=== PATIENT | female | born 1980 | race Caucasian/White ===

== ENCOUNTER 2018-08-02 09:14 | Inpatient (IN) | payer OTHER ==
[2018-08-02] MEDS ORDERED: Ketorolac INJ* 30 MG/ML 1 ML VIAL IV PUSH ONE (09:45)
[2018-08-02] MEDS ORDERED: Ondansetron INJ* 2 MG/ML VIAL IV ONE ×2 (09:45→14:08)
--- NOTE | 2018-08-02 09:45 | ED ---
Abdominal Pain/Female - HPI Summary HPI Summary: Patient is a 38yo F with a hx of breast CA with last chemo 2+ years ago presenting to the ED with lethargy, sweats, chills, mid abdominal pain and lower abdominal pain x 4 days. Symptoms of pain worsened with eating, however nausea improves with food intake. Denies constipation, diarrhea, fevers. Denies emesis. Denies chance of and denies any vaginal discharge or chance of STD's. She states she feels similar to when she was having chemo. Denies abdominal surgeries. Dr. Montgomery is oncologist and she attends [facility] as PCP. She has been going through PT for diffuse back pain and has been taking muscle relaxers x 2 weeks. She states she has never had a CT scan and is currently CA free. 6 months follow up with Dr. Montgomery. Symptoms not worse with positioning. She states she has been sleeping more frequently. VS on arrival are stable. - History of Current Complaint Chief Complaint: EDAbdPain Stated Complaint: ABD PAIN,NAUSEA Time Seen by Provider: 08/02/18 09:25 Hx Obtained From: Patient, Family/Cafeteria Assistant ?: No Onset/Duration: Gradual Onset Timing: Constant Severity Initially: Moderate Severity Currently: Moderate Pain Intensity: 7 Pain Scale Used: 0-10 Numeric Location: Diffuse Radiates: No Character: Cramping Aggravating Factor(s): Nothing Alleviating Factor(s): Nothing Associated Signs and Symptoms: Positive: Back Pain - Risk Factors Ovarian Torsion Risk Factor: Negative Allergies/Adverse Reactions: Allergies Allergy/AdvReac Type Severity Reaction Status Date / Time Penicillins Allergy Severe Swelling Verified 08/02/18 09:21 Of Face,Lips,& Throat bacitracin [From Polysporin] Allergy Rash Verified 08/02/18 10:16 polymyxin B [From Polysporin] Allergy Rash Verified 08/02/18 10:16 Sulfa (Sulfonamide Allergy Nausea And Verified 08/02/18 10:16 Antibiotics) Vomiting Home Medications: Home Medications B12/Iodin/Mag/Zinc/Janice/Hdch521 [Adrenoid] 1 cap PO DAILY 08/02/18 [History Confirmed 08/02/18] Calcium Carbonate/Vitamin D3 [Calcium 500 + Vit D Caplet] 1 each PO DAILY [History Confirmed 08/02/18] Dietary Supplement [Hyprost] 1 cap PO DAILY 08/02/18 [History Confirmed 08/02/18 ] Tamoxifen TAB* [Nolvadex*] 10 mg PO DAILY 08/02/18 [History Confirmed 08/02/18] PMH/Surg Hx/FS Hx/Imm Hx Previously Healthy: No - hx of breast CA Endocrine/Hematology History: Denies: Hx Diabetes Cardiovascular History: Denies: Hx Hypertension, Hx Pacemaker/ICD Sensory History: Denies: Hx Hearing Aid Psychiatric History: Denies: Hx Panic Disorder - Cancer History Cancer Type, Location and Year: LEFT BREAST CURRENTLY Hx Chemotherapy: No Hx Radiation Therapy: No - Surgical History Surgery Procedure, Year, and Place: BROKEN JAW PLASTIC SURGERY(NO METAL); BUNION SURGERY LEFT FOOT - Immunization History Hx Pertussis Vaccination: No Immunizations Up to Date: Yes Infectious Disease History: No Infectious Disease History: Denies: Traveled Outside the [place] in Last 30 Days - Family History Known Family History: Positive: Cardiac Disease - Social History Occupation: Employed Full-time Lives: With Family Alcohol Use: None Hx Substance Use: No Substance Use Type: Reports: None Hx Tobacco Use: No Smoking Status (MU): Never Smoked Tobacco Review of Systems Positive: Fatigue. Negative: Fever, Chills, Skin Diaphoresis Negative: Photophobia, Blurred Vision, Diplopia, Drainage Negative: Palpitations, Chest Pain Negative: Shortness Of Breath, Cough Positive: Abdominal Pain, Nausea. Negative: Vomiting, Diarrhea Genitourinary: Negative Positive: no symptoms reported, see HPI Positive: Arthralgia - diffuse back pain, Myalgia Negative: Rash, Bruising Negative: Headache, Weakness, Paresthesia Psychological: Normal All Other Systems Reviewed And Are Negative: Yes Physical Exam Triage Information Reviewed: Yes Vital Signs On Initial Exam: Initial Vitals Temp Pulse Resp BP Pulse Ox 98.1 F 85 16 108/56 98 08/02/18 09:18 08/02/18 09:18 08/02/18 09:18 08/02/18 09:18 08/02/18 09:18 Vital Signs Reviewed: Yes Appearance: Positive: Well-Appearing, Well-Nourished Skin: Positive: Warm, Skin Color Reflects Adequate Perfusion Head/Face: Positive: Normal Head/Face Inspection Eyes: Positive: EOMI, DELIO, Conjunctiva Clear Neck: Positive: Supple, No Lymphadenopathy Respiratory/Lung Sounds: Positive: Clear to Auscultation, Breath Sounds Present Cardiovascular: Positive: RRR, Pulses are Symmetrical in both Upper and Lower Extremities Abdomen Description: Positive: Other: - tednerness diffusely throughout Musculoskeletal: Positive: Other - pain to back - diffuse - worse over spine and L hip Neurological: Positive: Alert, Oriented to Person Place, Time, Speech Normal Psychiatric: Positive: Normal, Affect/Mood Appropriate AVPU Assessment: Alert Diagnostics - Vital Signs Vital Signs Temp Pulse Resp BP Pulse Ox 08/02/18 09:18 98.1 F 85 16 108/56 98 - Laboratory Result Diagrams: 08/02/18 09:37 08/02/18 09:37 Lab Statement: Any lab studies that have been ordered have been reviewed, and results considered in the medical decision making process. - CT No standard instances CT Interpretation: Positive (See Comments) CT Interpretation Completed By: Radiologist - 1. There are widespread low- attenuation bone lesions seen throughout the visualized skeleton with compression deformities noted at C4, T11 and L3. With a history of breast cancer metastases are the primary concern. Correlation to scintigraphic imaging , either bone scan or PET CT, will likely be informative. 2. There is hyperattenuating material in the dependent portion of the gallbladder without signs of biliary obstruction or acute inflammatory change. If the patient's exhibiting any signs of cholecystitis, superior characterization can be made with a right upper quadrant ultrasound. 3. Heterogeneous appearing uterus could be seen in the setting of uterine fibroids or adenomyosis. Superior characterization can be made with pelvic ultrasound. Abdominal Pain Fem Course/Dx - Course Course Of Treatment: VS stable on arrival. Patient is noted to have on labs hypercalcemia. Hypercalcemia most likely secondary to a spinal lytic lesions. CT of the spine, abdomen and pelvis obtained. CT spine shows 3 lytic lesions most consistent with a metastasis given patient's history. Patient was given 3 L fluids in the ED as well as zoledronic acid. Zoledronic acid given despite her kidney function due to benefits outweighing the risks. Patient is made aware of these results. Dr. Montgomery to consult and will see patient in the morning. We will continue fluids. - Diagnoses Differential Diagnosis: Positive: Other - metastatic disease, back pain, abdominal pain, lytic lesions of the back Provider Diagnoses: Hypercalcemia - Provider Notifications Discussed Care Of Patient With: Karthikeyan Montgomery Instructed by Provider To: Admit As Inpatient - Critical Care Time Critical Care Time: 30-74 min - CC time 30 minutes Discharge - Sign-Out/Discharge Documenting (check all that apply): Patient Departure - Discharge Plan Condition: Stable Disposition: ADMITTED TO [facility] Referrals: Rosalina Lindsey ASSIGNMENT AGENT [Primary Care Provider] - - Billing Disposition and Condition Condition: STABLE Disposition: Admitted to [facility]
[2018-08-02 09:51] LABS: Hematocrit 36 % (35-47); Hemoglobin 12.4 g/dl (12.0-16.0); Mean Corpuscular HGB Conc 34 g/dl (31-36); Mean Corpuscular Hemoglobin 29 pg (27-31); Mean Corpuscular Volume 85 fL (80-97); Mean Platelet Volume 8.3 um3 (7.4-10.4); Platelet Count 176 10^3/ul (150-450); Red Blood Count 4.27 10^6/ul (4.00-5.40); Red Cell Distribution Width 12 % (10.5-15); White Blood Count 5.3 10^3/ul (3.5-10.8)
[2018-08-02 10:02] LABS: EGFR Non-African American 31.5 (>60)
[2018-08-02] MEDS ORDERED: NS 0.9% 1000 ML* 1,000 ML IV ONE ×2 (10:07→12:52)
[2018-08-02 10:32] LABS: ABS Basophils 0.1 10^3/ul (0-0.2); ABS Eosinophils 0.1 10^3/ul (0-0.6); ABS Lymphocytes 1.3 10^3/ul (1.0-4.8); ABS Monocytes 0.3 10^3/ul (0-0.8); ABS Neutrophils 3.5 10^3/ul (1.5-7.7); ABS Nucleated RBC 0 10^3/ul; Eosinophil % 2.2 % (0-6); Lymphocyte % 24.8 % (25-47); Nucleated Red Blood Cells % 0.1
[2018-08-02] MEDS ORDERED: Iodixanol* (CONTRAST) 320 MG/ML 100 ML SDV IV ONE (11:19)
[2018-08-02 12:10] LABS: Urine Appearance Clear; Urine Blood Negative (Negative); Urine Color Straw; Urine Ketones Negative (Negative); Urine Protein Negative (Negative); Urine Red Blood Cell Absent (Absent); Urine Specific Gravity 1.004 (1.010-1.030); Urine Urobilinogen Negative (Negative); Urine White Blood Cell 1+(6-10/hpf) (Absent)
--- NOTE | 2018-08-02 12:54 | RAD ---
CLINICAL HISTORY: Diffuse abdominal pain in patient with a reported history of left breast cancer COMPARISON: PET/CT June 18, 2016 TECHNIQUE: Contrast enhanced CT examination of the abdomen and pelvis from the lung bases through the initial tuberosities. The patient received 72 mL Visipaque 320 intravenously prior to imaging.The patient received oral contrast as well prior to imaging. Reformats of the cervical, thoracic and lumbar spine were specifically created and independently reviewed. FINDINGS: VISUALIZED LUNG BASES: The visualized lung bases are grossly clear. There is no pleural effusion. ABDOMEN AND PELVIS: The liver, spleen, pancreas and adrenal glands are grossly normal in appearance. There is hyperattenuating material in the dependent portion of the otherwise normal-appearing gallbladder. The kidneys are normal in appearance without focal mass, calcification or signs of hydronephrosis. The oral contrast has progressed as far as the distal small bowel which somewhat limits evaluation of the terminal ileum and colon. The small and large bowel are not distended. The patient's normal appendix is identified in the right lower quadrant measuring 5 mm in diameter (sagittal image 49 of 128).. There is no gross retroperitoneal or mesenteric lymphadenopathy. The uterus is heterogeneous in attenuation and measures 9.4 x 4.5 cm in the sagittal plane (image 64) and 6.2 cm in the transverse plane. The abdominal aorta and iliac arteries are normal in course and diameter. BONES: There is nonspecific straightening of the normal cervical lordosis. There is a compression deformity of the C4 vertebral body. There are low-attenuation lesions throughout the visualized skeleton. For example the C2 spinous process is mostly replaced by low-attenuation soft tissue (series 601.2, image 42 of 90). There are lucent lesions throughout the thoracic spine most severely affecting T2, T5, T7, T10 and T11. There is compression deformity of the T11 vertebral body. There are lucent lesions in the lumbar spine and a compression deformity of the L3 vertebral body. IMPRESSION: 1. There are widespread low-attenuation bone lesions seen throughout the visualized skeleton with compression deformities noted at C4, T11 and L3. With a history of breast cancer metastases are the primary concern. Correlation to scintigraphic imaging, either bone scan or PET CT, will likely be informative. 2. There is hyperattenuating material in the dependent portion of the gallbladder without signs of biliary obstruction or acute inflammatory change. If the patient's exhibiting any signs of cholecystitis, superior characterization can be made with a right upper quadrant ultrasound. 3. Heterogeneous appearing uterus could be seen in the setting of uterine fibroids or adenomyosis. Superior characterization can be made with pelvic ultrasound.
[2018-08-02] MEDS ORDERED: diPHENhydraMINE IV* 50 MG/ML 1 ml VIAL (BENADRYL) IV ONE (13:23)
[2018-08-02] MEDS ORDERED: Zoledronic Acid* 4 MG in NS 0.9% 100 ML* 95 ML IVPB ONE (13:24)
[2018-08-02] MEDS ORDERED: Morphine INJ** 4 MG/ML 1 ML CARPUJECT IV ONE (14:08)
[2018-08-02] MEDS ORDERED: Morphine INJ* 2 MG/ML 1 ML SYRINGE (TWO MG - NEW SYRINGE VERSION) ONE (14:29)
[2018-08-02] MEDS: NS 0.9% 1000 ML* 1,000 ML IV SCH ×2 (15:23→22:05)
[2018-08-02] MEDS: Morphine INJ* 2 MG/ML 1 ML SYRINGE (TWO MG - NEW SYRINGE VERSION) IV PRN (19:17)
--- NOTE | 2018-08-02 20:05 | HP ---
CC: Rosalina Lindsey NP; Karthikeyan Montgomery MD* HISTORY AND PHYSICAL: DATE OF ADMISSION: 08/02/18 PRIMARY CARE PROVIDER: Rosalina Lindsey NP PRIMARY ONCOLOGIST: Karthikeyan Montgomery MD ATTENDING PHYSICIAN: Tiana Oviedo DO * (dictated by Vane Solorzano NP) CHIEF COMPLAINT: Abdominal pain and back pain. HISTORY OF PRESENT ILLNESS: Ms. Garza is a 38-year-old female with past medical history significant for left breast carcinoma status post bilateral mastectomy and reconstruction with left-sided lymph node dissection who states that for a couple of months she has been suffering from back pain and muscle spasms. Approximately 2 weeks ago around 07/18/18, she was seen by her primary care provider and prescribed muscle relaxers. She has also been doing physical therapy for approximately a week. On Friday approximately 4 days ago, she developed nausea. She denies any fevers, chills, chest pain, shortness of breath, diarrhea. She also developed abdominal pain on Friday. She reports feeling hot and cold today. On and Friday of last week, she had diarrhea 2 to 3 times, but now has had no bowel movement since Friday. She reports having a poor appetite and eating a decreased amount of food due to her stomach hurting when she eats. She denies any urinary symptoms such as urgency , frequency, dysuria. She denies any night sweats. She also reports pain in her left hip that radiates from her posterior hip to her left groin. Due to her symptoms, she presented to the hospital for further evaluation of her symptoms. While in the emergency room, the patient received Toradol, Zofran, normal saline. After her CT, she was noted to have a rash in her neck and cheek. She received Benadryl, this rash resolved well in the emergency room. The patient had a CT scan showing lytic lesions in her spine. She had labs showing an elevated calcium. She received Zometa after the ER providers consulted with Dr. Montgomery and the hospitalists were asked to evaluate the patient for admission. PAST MEDICAL HISTORY: Left breast carcinoma. PAST SURGICAL HISTORY: 1. Status post bilateral mastectomy with reconstruction and left axillary lymph node dissection. 2. Status post bunion surgery. 3. Status post jaw surgery. MEDICATIONS: Home medications include: 1. Tamoxifen 10 mg oral daily. 2. HyProst dietary supplement 1 capsule oral daily. 3. Calcium 500 plus vitamin D 1 tablet oral daily. 4. Adrenoid 1 cap oral daily. ALLERGIES: PENICILLIN, BACITRACIN, SULFA. FAMILY HISTORY: The patient's mother had a history of MS. The patient's father passed at age 55 from an IN. Her paternal grandfather had a history of heart disease. She denies family history of diabetes. Her maternal great grandfather with a history of colon cancer in his 70s. SOCIAL HISTORY: She denies tobacco or recreational drug use. She occasionally drinks alcohol. Her , Mathew Garza, will be her surrogate decision maker in the event she is unable to make decisions for herself. REVIEW OF SYSTEMS: I performed an 11-point review of systems. All the pertinent positives and negatives are mentioned in the history of present illness. The remaining review of systems is negative. PHYSICAL EXAMINATION GENERAL APPEARANCE: The patient is alert, pleasant, appears to be in no acute distress. VITAL SIGNS: Temperature 98.1, heart rate 54, respiratory rate 16, O2 sat 98% on room air, blood pressure 155/93. HEENT: Normocephalic, atraumatic. Pupils are equal and reactive to light. Extraocular movements are intact. RESPIRATORY: There is no accessory muscle use. Lungs are clear to auscultation bilaterally. CARDIOVASCULAR: Regular rate and rhythm. S1, S2 present. There are no murmurs , rubs, or gallops heard. ABDOMEN: Soft, nontender, nondistended. There are bowel sounds present x4. EXTREMITIES: There is no lower extremity edema. DP and PT pulses are 2+ and symmetric. MUSCULOSKELETAL: There is no clubbing or cyanosis noted. The patient exhibits good strength in all extremities. There is no tenderness to palpation to the neck, back or hips. NEUROLOGICAL: The patient is alert and oriented x4. Cranial nerves II through XII are grossly intact. PSYCHOLOGICAL: The patient is calm and cooperative. SKIN: There are no rashes or abnormalities seen. DIAGNOSTIC STUDIES/LAB DATA: Sodium 139, potassium 3.9, chloride 95, CO2 of 31 , BUN 26, creatinine 1.79, glucose 97. White blood cell count 5.3, hemoglobin 12.4, hematocrit 36, platelet count 176,000. Calcium 14.0. AST 43, ALT 11. Urinalysis significant for specific gravity of 1.004, trace leukocyte esterase, 1+ wbc's, squamous epithelial cells present. Abdomen, pelvis, cervical, lumbar and thoracic spine CT from today. Radiologist 's impression: There are widespread low attenuation bone lesions seen throughout the visualized skeleton with compression deformities noted at C4, T11 , and L3 with a history of breast cancer metastasis the primary concern. Correlation to sonographic imaging, either bone scan or PET/CT will likely be informative. There is hyperattenuating material in the dependent portion of the gallbladder without signs of biliary obstruction or acute inflammatory change. If the patient is exhibiting any signs of cholecystitis, superior characterization can be made with a right upper quadrant ultrasound. Heterogeneous appearing uterus can be seen in the setting of uterine fibroids or adenomyosis. Superior characterization can be made with pelvic ultrasound. IMPRESSION: Ms. Garza is a 38-year-old female with past medical history significant for breast cancer status post mastectomy who presented to the emergency room with complaints of abdominal pain. She will be admitted as an observation for bone lesions, back pain, and elevated calcium. ASSESSMENT/PLAN: 1. Lytic lesions. I suspect that this likely represents metastatic breast cancer in the setting of a patient with a history of breast cancer. She received Zomig in the ER as her calcium is elevated. We will recheck her calcium levels in the morning. We will provide her with supportive care, IV fluids, pain medications, nausea medications. She will be seen by Oncology who will take over her care in the morning. 2. Acute on chronic kidney injury. I suspect the patient's creatinine is elevated due to her elevated calcium in addition to not taking in good PO intake. We will give her IV fluids overnight, and recheck her labs in the morning. 3. Elevated calcium. I suspect this is secondary to the patient's bone lesions. She was also on a calcium supplement. We will discontinue her calcium supplement. She received a dose of Zometa in the emergency room. 4. Breast cancer. The patient should continue to follow with Oncology. We will continue her on her home tamoxifen. 5. Fluids, electrolytes and nutrition. Regular diet. 6. Code status. Full code. 7. DVT prophylaxis. She is at moderate risk. We will add subcu heparin. 8. Disposition. Observation. TIME SPENT: Time for this admission was approximately 60 minutes, greater than half of that was spent with the patient and her mother discussing medications, past medical history, the events leading up to her arrival today and performing a physical examination. The case has been reviewed with the attending, Dr. Oviedo, who agrees with the plan of care. Reviewed by JAVON SALEH 08/06/18 1153 [id number]/[facility] #: [id number] MTDD
[2018-08-02] MEDS: Ondansetron INJ* 2 MG/ML VIAL IV PRN (20:25)
[2018-08-02] MEDS: Heparin VIAL(*) 5000 UNITS/ML VIAL (FIVE THOUSAND) SUBCUT SCH (21:58)
[2018-08-02] MEDS: Tamoxifen TAB* 10 MG PO SCH (21:58)
[2018-08-03] MEDS: Acetaminophen TAB* 325 MG PO PRN ×2 (00:24→06:04)
[2018-08-03] MEDS: Morphine INJ* 2 MG/ML 1 ML SYRINGE (TWO MG - NEW SYRINGE VERSION) IV PRN (04:04)
[2018-08-03] MEDS: Ondansetron INJ* 2 MG/ML VIAL IV PRN ×2 (04:04→09:39)
[2018-08-03] MEDS: Heparin VIAL(*) 5000 UNITS/ML VIAL (FIVE THOUSAND) SUBCUT SCH ×3 (06:03→22:23)
[2018-08-03 06:22] LABS: EGFR Non-African American 35.1 (>60)
[2018-08-03] MEDS: NS 0.9% 1000 ML* 1,000 ML IV SCH ×2 (07:57→17:11)
[2018-08-03] MEDS: oxyCODONE TAB* 5 MG TAB PO PRN ×5 (08:31→22:19)
[2018-08-03] MEDS ORDERED: Dexamethasone IV* 8 MG in NS 0.9% 50 ML* 50 ML IVPB SCH (11:00)
[2018-08-03] MEDS: Dexamethasone IV* 4 MG/ML 1 ML (4 MG) IV SLOW PU SCH ×2 (11:24→22:26)
[2018-08-03] MEDS: PROCHLORPERAZINE INJ 5 MG/ML 2 ML VIAL IV PRN ×2 (11:24→17:16)
[2018-08-03] MEDS: Tamoxifen TAB* 10 MG PO SCH (22:22)
[2018-08-04] MEDS: oxyCODONE TAB* 5 MG TAB PO PRN ×3 (03:33→11:57)
[2018-08-04] MEDS: Heparin VIAL(*) 5000 UNITS/ML VIAL (FIVE THOUSAND) SUBCUT SCH (05:50)
[2018-08-04] MEDS: NS 0.9% 1000 ML* 1,000 ML IV SCH (05:55)
--- NOTE | 2018-08-04 06:42 | CONS ---
MEDICAL ONCOLOGY CONSULTATION NOTE: DATE OF CONSULT: 08/03/18 REASON FOR CONSULTATION: New onset of metastatic carcinoma in a patient with known underlying breast cancer. HISTORY OF PRESENT ILLNESS: Malka Garza is a 38-year-old female well known to our office. She originally had noticed a lump in the breast in May 2015. A mammogram in May 2015 had shown a complex cyst, corresponding to palpable abnormality. She was followed on several office visits that summer in an attempt to aspirate the cyst. Thick fluid and blood were obtained and the cytology was positive for adenocarcinoma. Fine-needle aspiration in October 2015 revealed a tumor that was ER, OH positive and HER2 3+ positive as well. Breast MRI revealed a mass in the left upper outer quadrant with also evidence for multifocal disease with total tumor spanning an area of 46 mm. No axillary adenopathy was noted. CT scan of the chest, abdomen, and pelvis revealed an area of sclerosis in the L5 vertebrae. Bone scan was negative. MRI scan of the vertebrae did not reveal any evidence for metastatic disease. She was still premenopausal, had taken oral contraceptives for 2 years and then used a contraceptive patch and had been off hormonal therapy since 2003. She was seen in second opinion at [facility]. A core needle aspiration was performed and this also was positive for HER2/jena. She was seen in consultation by Dr. Landaverde of Surgery, Dr. Lola Dumas of Medical Oncology, and Dr. Ontiveros of Plastic Surgery. She received chemotherapy 6 cycles of TCHP neoadjuvant chemotherapy, initiated in March 2016. At the time of surgery, there was evidence for 3 lymph nodes being negative, although one of these did have evidence for tumor regression. Rest revealed only residual DCIS. Tamoxifen was initiated in March 2016 and she has been followed since. Most recent office visit was on 04/14/18. She had remained on tamoxifen other than stopping for a week due to insurance issue and resuming tamoxifen caused significant hot flashes and also change in her menstrual period, but then these resolved over a period of time. She had no significant aches or pain other than in chest where she has "a pulled muscle" which seems to be improving with physical therapy. The pain is at times was worse with sneezing, twisting, and turning. No hot flashes or night sweats back on the tamoxifen. At this time, the patient has noted back pain along with the muscle spasms occurring over a couple of months period of time. This has been in the neck as well as in the mid spine, lower spine and radiating down to the left buttock into the left thigh. She was seen by primary care on 07/18/18. At that time, was already taking Advil 400 mg b.i.d., but a muscle relaxant was added. She was in the physical therapy for approximately a week. Four days prior to this admission, she developed significant nausea without any vomiting. However, she had 1 vomiting episode on the morning of her consultation. She developed diarrhea several times per day, up to 5 times per day. Appetite was poor. She denies any fevers, sweats, chills, cough, or other signs of infections. Denies any hot flashes or night sweats. She does complain to me of having developed headaches over this period of time, which can be severe. She rates both the back pain, neck pain, and headache all up to 8 to 10/10. In the emergency room, the patient received Toradol and Zofran along with normal saline. A CT scan was performed. There was a subsequent rash noted. It resolved with Benadryl. A CT scan of the abdomen and pelvis revealed multiple lytic lesions in the spine, which were confirmed on the CT scan of the cervical, thoracic, and lumbar spine. There is a lesion at C2 in the spinous process, most of this replaced by no attenuation soft tissue. There is a marked compression deformity of the C4 vertebral body. In addition, these lesions are seen on multiple locations in the thoracic spine, worse at T2, T5, T7, T10, and T11 with compression deformities also noted at T11. There are multiple loosened abnormalities in the lumbar spine and a compression abnormality of L3. There is no evidence for any cord compression. There is no evidence for any abnormal lesions in the liver or lungs. Known adenopathy. There are gallstones present. PAST MEDICAL HISTORY: Otherwise significant for jaw surgery and bunion surgery. No hypertension, diabetes, GA, or CVA. MEDICATIONS: At this time include, 1. Ibuprofen 400 mg b.i.d. 2. Tamoxifen 20 mg daily. 3. Calcium with vitamin D. 4. P.r.n. muscle relaxant, name unclear. ALLERGIES: To PENICILLINS, BACITRACIN, and SULFA. FAMILY HISTORY: Father at age 55 of heart disease. Mother is currently 65 with multiple sclerosis. Brother in good health. Children, ages 7 and 9. Only other family history of malignancy is that of a maternal great grandfather with colon cancer at age 70. SOCIAL HISTORY: The patient works in [employer] in [place] at [place]. She lives with and 2 children. Occasional alcohol. No smoking. PHYSICAL EXAM: A 38-year-old female, in no acute distress. Vital Signs: Blood pressure 129/65, pulse 82, temperature 99.5. She does report that she had a higher temperature earlier over 100, although this is not documented in her vital signs flow sheet. HEENT: PERRL. EOMI. No erythema or exudates. No scleral icterus. No palpable cervical, supraclavicular, or axillary adenopathy. Status post bilateral mastectomies with reconstruction with well- healed scars. Heart: Regular rate and rhythm without murmurs, rubs, or gallops. Lungs: Clear. Abdomen: Normoactive bowel sounds. No masses or organomegaly. There is mild tenderness diffusely, but mostly in the lower quadrants. Extremities: No clubbing, cyanosis, or edema. Neurological Exam: Motor is 5/5 throughout. Cranial nerves II through XII were intact. The patient is alert and oriented x3. LABORATORY STUDIES: Significant for moderately elevated calcium at 14. Creatinine is elevated at 1.79, BUN of 26. Other electrolytes are normal. CBC with a white count of 5,300, H and H of 36/12.4, platelet count of 176,000. With hydration and with a single dose of Zometa 4 mg, creatinine has mildly diminished and the calcium level is down to 11.4. Albumin was normal on both readings. IMPRESSION: A 38-year-old female with known HER2 positive breast cancer. It was lymph node negative after neoadjuvant chemotherapy, but there was evidence for cancer in one of the lymph nodes. Although the largest tumor was under 2 cm , there were significant tumor in multiple sites spanning over 4 cm. She is at high risk for recurrence given these features and it certainly appears as though that is the case with multiple lytic bone lesions seen throughout the cervical, thoracic, and lumbar spines with no evidence for compression fractures. Her pain is dramatically worse recently. Some of this may be due to recent compression fractures to the extent of the lytic bony disease. In addition, she has marked hypercalcemia, which has improved with hydration and Zometa. She will need further workup to better elucidate how much disease is present and whether there is any to bone involving the viscera . An MRI scan of the brain will be obtained, especially given her headaches. This will be with IV contrast to both look for parenchymal lesions in her brain and also to assess for carcinomatous meningitis, especially given the number of lesions along with spinal canal. The patient will also require a PET scan to better determine whether or not if there is any visceral disease. CA 27-29 tumor markers have also been ordered. At the time of the visit with the patient in the hospital, her mother and were both present. The patient herself was feeling very dizzy and lightheaded, episodes of nausea, complaining of severe headaches. Pain and nausea not relieved with the current regimen of narcotics and Zofran. When the patient was seen later in the day following use of Compazine and Decadron, her symptoms seemed under much better control. It was discussed with the patient and her and her mother that systemic therapy should commence in the near future. Her options would include anti- HER2 agents such as Kadcyla. Also, options for change of hormonal therapy from tamoxifen to either aromatase inhibitors or Faslodex. One possibility would be to use Kadcyla in conjunction with a changed hormonal therapy. Alternatively, if there is visceral disease, chemotherapy might be appropriate. In addition, if there were to be [employer] involvement, either the parenchymal lesions or carcinomatous meningitis, focal treatments for her [employer] would be in order. [id number]/[facility] #: [id number] [facility]
[2018-08-04 07:05] LABS: ABS Basophils 0 10^3/ul (0-0.2); ABS Eosinophils 0 10^3/ul (0-0.6); ABS Lymphocytes 1.1 10^3/ul (1.0-4.8); ABS Monocytes 0.1 10^3/ul (0-0.8); ABS Neutrophils 5.7 10^3/ul (1.5-7.7); ABS Nucleated RBC 0 10^3/ul; Eosinophil % 0 % (0-6); Hematocrit 32 % (35-47); Hemoglobin 10.8 g/dl (12.0-16.0); Lymphocyte % 16.5 % (25-47); Mean Corpuscular HGB Conc 34 g/dl (31-36); Mean Corpuscular Hemoglobin 29 pg (27-31); Mean Corpuscular Volume 85 fL (80-97); Nucleated Red Blood Cells % 0; Platelet Count 171 10^3/ul (150-450); Red Cell Distribution Width 12 % (10.5-15)
[2018-08-04 07:23] LABS: EGFR Non-African American 42.2 (>60)
[2018-08-04] MEDS: Dexamethasone IV* 4 MG/ML 1 ML (4 MG) IV SLOW PU SCH (08:02)
[2018-08-04] MEDS ORDERED: Gadoteridol* (CONTRAST) 279.3 MG/ML 10 ML IV ONE (08:54)
--- NOTE | 2018-08-04 09:47 | RAD ---
HISTORY: headaches with metastatic breast cancer COMPARISONS: None TECHNIQUE: The following sequences were obtained of the head: Sagittal T1-weighted images, axial T2-weighted images, axial FLAIR images, axial susceptibility weighted images, axial T1-weighted images. Additionally, axial diffusion-weighted images were obtained with calculated apparent diffusion coefficients. Additionally, sagittal, coronal, and axial T1-weighted images were obtained after contrast enhancement with a gadolinium-based intravenous contrast agent. FINDINGS: HEMORRHAGE/INFARCT: There is no hemorrhage or acute infarct. MASSES/SHIFT: There is no mass or shift. EXTRA-AXIAL SPACES/MENINGES: There are no extra-axial fluid collections. SULCI AND VENTRICLES: The sulci and ventricles are normal in size and position for the patient's stated age. CEREBRUM: There are no focal parenchymal abnormalities. BRAINSTEM: There are no focal parenchymal abnormalities. CEREBELLUM: There are no focal parenchymal abnormalities. The cerebellar tonsils are normal in size and position. SELLA: The sella is normal. PINEAL: The pineal region is clear. CP ANGLE/TEMPORAL BONES: The labyrinthine structures are grossly normal. VESSELS: Normal flow-voids are noted within the visualized vertebral vasculature. DIFFUSION ABNORMALITIES: There are no diffusion abnormalities. PARANASAL SINUSES/MASTOIDS: The paranasal sinuses are clear. ORBITS: The orbits are unremarkable. BONES AND SOFT TISSUE: No bone or soft tissue abnormalities are noted. OTHER: There is no abnormal enhancement. IMPRESSION: NO ABNORMAL ENHANCEMENT, VASOGENIC EDEMA, OR SPACE-OCCUPYING LESION TO SUGGEST METASTATIC DISEASE TO THE BRAIN.
[2018-08-04 10:27] VITALS: BP 161/91
== END 2018-08-04 13:50 | disposition home or self-care (01) | DRG 543 ==
LOC: ED 09:14 → MED 14:55 → OBSVTOIN 08-03 13:15
PROVIDERS: ADMIT Internal Medicine Hematology & Oncology; ATTEND Internal Medicine Hematology & Oncology
DX: C79.51 Secondary malignant neoplasm of bone (principal); C77.9 Secondary and unspecified malignant neoplasm of lymph node, unspecified; N17.9 Acute kidney failure, unspecified; E83.52 Hypercalcemia; C50.412 Malignant neoplasm of upper-outer quadrant of left female breast; M89.9 Disorder of bone, unspecified; Z17.0 Estrogen receptor positive status [ER+]; Z79.899 Other long term (current) drug therapy; Z88.1 Allergy status to other antibiotic agents; Z88.0 Allergy status to penicillin; Z88.2 Allergy status to sulfonamides; Z82.49 Family history of ischemic heart disease and other diseases of the circulatory system; Z80.0 Family history of malignant neoplasm of digestive organs; Z84.89 Family history of other specified conditions
CPT/HCPCS: 36415; 70553; 72125; 72128; 72131; 74177; 80048; 80053; 81003; 81015; 83605; 83690; 84702; 85025; 86140; 86300; 87086; 99284; A9270-GY; A9579; G0378; J0780; J1100; J1200; J1644; J1885; J2270; J2405; J3489; Q9967

== ENCOUNTER 2022-03-12 20:15 | Inpatient (IN) ==
[2022-03-12] MEDS ORDERED: NS 0.9% 1000 ml BAG 1,000 ML IV ONE (21:10)
[2022-03-12] MEDS ORDERED: Iodixanol (CONTRAST) 320 MG/ML 100 ML SDV IV ONE (21:19)
[2022-03-12 22:15] LABS: ABS Basophils 0.1 10^3/ul (0-0.2); ABS Eosinophils 0.1 10^3/ul (0-0.6); ABS Lymphocytes 0.8 10^3/ul (1.0-4.8); ABS Monocytes 0.3 10^3/ul (0-0.8); ABS Neutrophils 1.7 10^3/ul (1.5-7.7); Eosinophil % 2.8 %; Hematocrit 28 % (35-47); Hemoglobin 9.8 g/dL (12.0-16.0); Lymphocyte % 28.5 %; Mean Corpuscular HGB Conc 35 g/dL (31-36); Mean Corpuscular Hemoglobin 32 pg (27-31); Mean Corpuscular Volume 93 fL (80-97); Mean Platelet Volume 7.8 fL (7.4-10.4); Nucleated Red Blood Cells % 0.1; Platelet Count 159 10^3/uL (150-450); Red Blood Count 3.02 10^6 /uL (3.70-4.87); Red Cell Distribution Width 19 % (10-15)
[2022-03-12 22:26] LABS: Activated Partial Thrombo Time 33.6 seconds (26.0-38.0); INR 1.17 (0.86-1.15)
[2022-03-12 22:32] LABS: HDL Cholesterol 44.7 mg/dL
[2022-03-12 22:33] LABS: Albumin 3.6 g/dL (3.2-5.2); Albumin/Globulin Ratio 2.4 (1-3); Globulin 1.5 g/dL (2-4); Magnesium 1.7 mg/dL (1.9-2.7); Potassium 3.5 mmol/L (3.5-5.0); Total Bilirubin 0.4 mg/dL (0.2-1.0); Total Protein 5.1 g/dL (6.4-8.9); eGFR CKD-EPI 77.2 (>60)
[2022-03-12] MEDS ORDERED: Dexamethasone IV 4 MG/ML VIAL 1 ml VIAL IV SLOW PU ONE (22:56)
[2022-03-12] MEDS ORDERED: Magnesium Sulfate 2 gm BAG 2 GM/50 ML BAG IVPB ONE (23:55)
[2022-03-13 00:04] LABS: High Sensitivity Troponin 1 Hr 10 pg/mL (<15)
[2022-03-13] MEDS ORDERED: Ondansetron ODT 4 mg TAB 4 MG TAB PO PRN (00:27)
[2022-03-13 02:39] LABS: Urine Appearance Clear; Urine Bilirubin Negative (Negative); Urine Blood Negative (Negative); Urine Color Colorless; Urine Glucose Negative (Negative); Urine Ketones Negative (Negative); Urine Nitrite Negative (Negative); Urine Protein Negative (Negative); Urine Specific Gravity 1.004 (1.002-1.030); Urine Urobilinogen Negative (Negative)
[2022-03-13 06:05] LABS: ABS Lymphocytes 0.2 10^3/ul (1.0-4.8); ABS Neutrophils 3.9 10^3/ul (1.5-7.7); Hematocrit 36 % (35-47); Hemoglobin 12.4 g/dL (12.0-16.0); Lymphocyte % 4.6 %; Mean Corpuscular HGB Conc 35 g/dL (31-36); Mean Corpuscular Hemoglobin 32 pg (27-31); Mean Corpuscular Volume 94 fL (80-97); Mean Platelet Volume 8.4 fL (7.4-10.4); Platelet Count 192 10^3/uL (150-450); Red Blood Count 3.85 10^6 /uL (3.70-4.87); Red Cell Distribution Width 19 % (10-15); White Blood Count 4.2 10^3/uL (3.5-10.8)
[2022-03-13 06:23] LABS: Albumin 4.4 g/dL (3.2-5.2); Albumin/Globulin Ratio 2.2 (1-3); Calcium 9.1 mg/dL (8.6-10.3); Magnesium 2.1 mg/dL (1.9-2.7); Potassium 4.2 mmol/L (3.5-5.0); Total Bilirubin 0.5 mg/dL (0.2-1.0); Total Protein 6.4 g/dL (6.4-8.9); eGFR CKD-EPI 87.1 (>60)
[2022-03-13] MEDS ORDERED: [UNRECOGNIZED DRUG - OTHER] PO SCH (09:00)
[2022-03-13] MEDS ORDERED: Gadoteridol (CONTRAST) 279.3 MG/ML 10 ML IV ONE (13:46)
[2022-03-13 15:52] VITALS: BP 112/67
== END 2022-03-13 19:36 | disposition home or self-care (01) | DRG 81 ==
LOC: ED 20:15 → EDHOLD 23:52 → SUATTDRO 23:52 → EDHOLD 03-13 00:58 → MEDTELE 03-13 01:43
PROVIDERS: ADMIT Hospitalist; ATTEND Internal Medicine

== ENCOUNTER 2022-04-09 12:14 | Inpatient (IN) ==
[2022-04-09] MEDS ORDERED: diazePAM INJ CARPUJECT 5 MG/ML SYRINGE IV ONE ×3 (12:53→14:37)
[2022-04-09] MEDS ORDERED: cefTRIAXone 1 gm/50 mL D5W 1 GM/50 ML BAG IV ONE (14:49)
[2022-04-09] MEDS ORDERED: NS 0.9% IVPB ONE (14:57)
[2022-04-09] MEDS ORDERED: DEXAMETHASONE IVPB ONE (14:57)
[2022-04-09 15:25] LABS: ABS Lymphocytes 0.1 10^3/ul (1.0-4.8); ABS Neutrophils 2.2 10^3/ul (1.5-7.7); Eosinophil % 0.1 %; Hematocrit 30 % (35-47); Hemoglobin 10.1 g/dL (12.0-16.0); Lymphocyte % 2.3 %; Mean Corpuscular HGB Conc 34 g/dL (31-36); Mean Corpuscular Hemoglobin 32 pg (27-31); Mean Corpuscular Volume 94 fL (80-97); Mean Platelet Volume 6.8 fL (7.4-10.4); Nucleated Red Blood Cells % 0.2; Platelet Count 90 10^3/uL (150-450); Red Blood Count 3.14 10^6 /uL (3.70-4.87); Red Cell Distribution Width 21 % (10-15); White Blood Count 2.3 10^3/uL (3.5-10.8)
[2022-04-09 15:58] LABS: Albumin 3.3 g/dL (3.2-5.2); Albumin/Globulin Ratio 2.5 (1-3); Calcium 7.8 mg/dL (8.6-10.3); Globulin 1.3 g/dL (2-4); Potassium 3.9 mmol/L (3.5-5.0); Total Bilirubin 0.9 mg/dL (0.2-1.0); Total Protein 4.6 g/dL (6.4-8.9); eGFR CKD-EPI 120.5 (>60)
[2022-04-09] MEDS ORDERED: Iohexol 300 (CONTRAST) 10 ML SDV IV ONE (16:02)
[2022-04-10] MEDS ORDERED: diazePAM INJ CARPUJECT 5 MG/ML SYRINGE IV ONE ×2 (05:28→06:03)
[2022-04-10] MEDS ORDERED: diazePAM INJ CARPUJECT 5 MG/ML SYRINGE IM ONE ×2 (06:01→06:04)
[2022-04-10] MEDS ORDERED: CAPECITABINE 500 MG PO PRN (06:07)
[2022-04-10] MEDS ORDERED: Droperidol 5 MG/2 ML 2 ML VIAL IV ONE ×3 (06:33→23:55)
[2022-04-10] MEDS ORDERED: cefTRIAXone 1 gm/50 mL D5W 1 GM/50 ML BAG IV SCH (06:45)
[2022-04-10] MEDS: Nystatin SUSPENSION 100,000 UNITS/ML UDC SWISH SPIT SCH ×4 (11:34→20:16)
[2022-04-10] MEDS ORDERED: Dexamethasone IV 4 MG/ML VIAL 1 ml VIAL IV SLOW PU ONE (14:04)
[2022-04-10] MEDS: cefTRIAXone 1 gm/50 mL D5W 1 GM/50 ML BAG IV SCH (15:04)
[2022-04-11] MEDS: diazePAM INJ CARPUJECT 5 MG/ML SYRINGE IV SCH ×4 (00:52→18:00)
[2022-04-11] MEDS: Nystatin SUSPENSION 100,000 UNITS/ML UDC SWISH SPIT SCH ×4 (08:43→22:58)
[2022-04-11 09:50] LABS: ABS Lymphocytes 0.2 10^3/ul (1.0-4.8); ABS Monocytes 0.2 10^3/ul (0-0.8); Eosinophil % 0.4 %; Hematocrit 32 % (35-47); Hemoglobin 10.8 g/dL (12.0-16.0); Lymphocyte % 8.4 %; Mean Corpuscular HGB Conc 34 g/dL (31-36); Mean Corpuscular Hemoglobin 32 pg (27-31); Mean Corpuscular Volume 94 fL (80-97); Mean Platelet Volume 6.8 fL (7.4-10.4); Nucleated Red Blood Cells % 0.1; Platelet Count 108 10^3/uL (150-450); Red Blood Count 3.35 10^6 /uL (3.70-4.87); Red Cell Distribution Width 21 % (10-15); White Blood Count 2.4 10^3/uL (3.5-10.8)
[2022-04-11 10:34] LABS: Calcium 8.1 mg/dL (8.6-10.3); Potassium 4.2 mmol/L (3.5-5.0); eGFR CKD-EPI 118.7 (>60)
[2022-04-11] MEDS: cefTRIAXone 1 gm/50 mL D5W 1 GM/50 ML BAG IV SCH (13:26)
[2022-04-11] MEDS: Enoxaparin 40 MG/0.4 ML SYR SUBCUT SCH (18:01)
[2022-04-11] MEDS ORDERED: Droperidol 5 MG/2 ML 2 ML VIAL IV ONE ×2 (18:48→22:49)
[2022-04-11] MEDS ORDERED: Heparin 5000 UNITS/ML 1 mL VIAL SUBCUT SCH (22:00)
[2022-04-12] MEDS: diazePAM INJ CARPUJECT 5 MG/ML SYRINGE IV SCH ×4 (00:58→18:23)
[2022-04-12 06:13] LABS: ABS Lymphocytes 0.3 10^3/ul (1.0-4.8); ABS Monocytes 0.2 10^3/ul (0-0.8); ABS Neutrophils 1.3 10^3/ul (1.5-7.7); Eosinophil % 0.4 %; Hematocrit 32 % (35-47); Hemoglobin 10.9 g/dL (12.0-16.0); Lymphocyte % 17.8 %; Mean Corpuscular HGB Conc 34 g/dL (31-36); Mean Corpuscular Hemoglobin 33 pg (27-31); Mean Corpuscular Volume 95 fL (80-97); Mean Platelet Volume 6.8 fL (7.4-10.4); Nucleated Red Blood Cells % 0.1; Platelet Count 108 10^3/uL (150-450); Red Blood Count 3.36 10^6 /uL (3.70-4.87); Red Cell Distribution Width 21 % (10-15); White Blood Count 1.9 10^3/uL (3.5-10.8)
[2022-04-12 06:32] LABS: Calcium 7.9 mg/dL (8.6-10.3); Potassium 4.1 mmol/L (3.5-5.0)
[2022-04-12 06:38] LABS: eGFR CKD-EPI 116.1 (>60)
[2022-04-12] MEDS: Nystatin SUSPENSION 100,000 UNITS/ML UDC SWISH SPIT SCH ×3 (10:43→21:54)
[2022-04-12] MEDS: cefTRIAXone 1 gm/50 mL D5W 1 GM/50 ML BAG IV SCH (14:36)
[2022-04-12] MEDS: Droperidol 5 MG/2 ML 2 ML VIAL IV PRN (17:11)
[2022-04-12] MEDS: Enoxaparin 40 MG/0.4 ML SYR SUBCUT SCH (18:23)
[2022-04-12] MEDS ORDERED: Droperidol 5 MG/2 ML 2 ML VIAL IV ONE (21:56)
[2022-04-13] MEDS: diazePAM INJ CARPUJECT 5 MG/ML SYRINGE IV SCH ×5 (00:49→23:54)
[2022-04-13 06:47] LABS: TSH Ultra Thyroid Stim Horm 1.81 mcIU/mL (0.34-5.60)
[2022-04-13 07:02] LABS: Vitamin D Total 25(OH) 9.9 ng/mL (20-50)
[2022-04-13] MEDS: Nystatin SUSPENSION 100,000 UNITS/ML UDC SWISH SPIT SCH ×4 (07:41→21:07)
[2022-04-13] MEDS: Droperidol 5 MG/2 ML 2 ML VIAL IV PRN ×2 (10:11→18:10)
[2022-04-13] MEDS: D5W NS IVFLUID 1000 ML IV SCH (11:54)
[2022-04-13] MEDS: cefTRIAXone 1 gm/50 mL D5W 1 GM/50 ML BAG IV SCH (14:11)
[2022-04-13] MEDS: Enoxaparin 40 MG/0.4 ML SYR SUBCUT SCH (17:42)
[2022-04-14] MEDS: D5W NS IVFLUID 1000 ML IV SCH ×2 (01:16→16:07)
[2022-04-14 05:27] LABS: ABS Lymphocytes 0.3 10^3/ul (1.0-4.8); ABS Monocytes 0.1 10^3/ul (0-0.8); Eosinophil % 1.6 %; Hematocrit 31 % (35-47); Hemoglobin 10.8 g/dL (12.0-16.0); Lymphocyte % 20.6 %; Mean Corpuscular HGB Conc 35 g/dL (31-36); Mean Corpuscular Hemoglobin 33 pg (27-31); Mean Corpuscular Volume 94 fL (80-97); Mean Platelet Volume 6.6 fL (7.4-10.4); Nucleated Red Blood Cells % 0.3; Platelet Count 119 10^3/uL (150-450); Red Cell Distribution Width 21 % (10-15); White Blood Count 1.4 10^3/uL (3.5-10.8)
[2022-04-14 05:43] LABS: Calcium 7.6 mg/dL (8.6-10.3); Magnesium 2.3 mg/dL (1.9-2.7); Potassium 3.6 mmol/L (3.5-5.0); eGFR CKD-EPI 121.7 (>60)
[2022-04-14] MEDS: diazePAM INJ CARPUJECT 5 MG/ML SYRINGE IV SCH ×3 (06:14→17:44)
[2022-04-14] MEDS: Nystatin SUSPENSION 100,000 UNITS/ML UDC SWISH SPIT SCH ×4 (07:22→20:47)
[2022-04-14] MEDS: Droperidol 5 MG/2 ML 2 ML VIAL IV PRN (10:46)
[2022-04-14] MEDS: cefTRIAXone 1 gm/50 mL D5W 1 GM/50 ML BAG IV SCH (13:27)
[2022-04-14] MEDS: Enoxaparin 40 MG/0.4 ML SYR SUBCUT SCH (17:44)
[2022-04-15] MEDS: diazePAM INJ CARPUJECT 5 MG/ML SYRINGE IV SCH ×3 (00:15→13:51)
[2022-04-15] MEDS: D5W NS IVFLUID 1000 ML IV SCH ×2 (04:43→18:10)
[2022-04-15] MEDS: Nystatin SUSPENSION 100,000 UNITS/ML UDC SWISH SPIT SCH ×4 (09:22→20:58)
[2022-04-15] MEDS: Droperidol 5 MG/2 ML 2 ML VIAL IV PRN (10:27)
[2022-04-15] MEDS: Enoxaparin 40 MG/0.4 ML SYR SUBCUT SCH (18:11)
[2022-04-16 04:58] LABS: ABS Lymphocytes 0.2 10^3/ul (1.0-4.8); ABS Monocytes 0.3 10^3/ul (0-0.8); ABS Neutrophils 2.3 10^3/ul (1.5-7.7); Eosinophil % 0.1 %; Hematocrit 35 % (35-47); Hemoglobin 12.5 g/dL (12.0-16.0); Lymphocyte % 7.8 %; Mean Corpuscular HGB Conc 35 g/dL (31-36); Mean Corpuscular Hemoglobin 33 pg (27-31); Mean Corpuscular Volume 93 fL (80-97); Mean Platelet Volume 6.7 fL (7.4-10.4); Nucleated Red Blood Cells % 0.1; Platelet Count 122 10^3/uL (150-450); Red Blood Count 3.79 10^6 /uL (3.70-4.87); Red Cell Distribution Width 21 % (10-15); White Blood Count 2.8 10^3/uL (3.5-10.8)
[2022-04-16 05:43] LABS: Albumin 3.3 g/dL (3.2-5.2); Albumin/Globulin Ratio 1.8 (1-3); Calcium 7.5 mg/dL (8.6-10.3); Globulin 1.8 g/dL (2-4); Total Bilirubin 0.9 mg/dL (0.2-1.0); Total Protein 5.1 g/dL (6.4-8.9); eGFR CKD-EPI 119.9 (>60)
[2022-04-16] MEDS: D5W NS IVFLUID 1000 ML IV SCH ×2 (07:38→22:12)
[2022-04-16] MEDS: Nystatin SUSPENSION 100,000 UNITS/ML UDC SWISH SPIT SCH ×4 (09:05→23:32)
[2022-04-16] MEDS ORDERED: Lorazepam PYXIS KEY PRN (11:33)
[2022-04-16] MEDS: Cholecalciferol (VIT D3) 1,000 unit TAB PO SCH (13:43)
[2022-04-16] MEDS: LORazepam 2 mg VIAL 1 ml IV PUSH PRN (15:11)
[2022-04-16] MEDS: Enoxaparin 40 MG/0.4 ML SYR SUBCUT SCH (17:12)
[2022-04-17] MEDS: Cholecalciferol (VIT D3) 1,000 unit TAB PO SCH (09:34)
[2022-04-17] MEDS: Nystatin SUSPENSION 100,000 UNITS/ML UDC SWISH SPIT SCH ×4 (09:35→21:49)
[2022-04-17] MEDS: D5W NS IVFLUID 1000 ML IV SCH (11:49)
[2022-04-17] MEDS: LORazepam 2 mg VIAL 1 ml IV PUSH PRN (17:16)
[2022-04-17] MEDS: Enoxaparin 40 MG/0.4 ML SYR SUBCUT SCH (17:18)
[2022-04-18] MEDS: D5W NS IVFLUID 1000 ML IV SCH ×2 (00:56→16:27)
[2022-04-18] MEDS: Nystatin SUSPENSION 100,000 UNITS/ML UDC SWISH SPIT SCH ×4 (09:24→21:10)
[2022-04-18] MEDS: LORazepam 2 mg VIAL 1 ml IV PUSH PRN ×2 (09:44→18:19)
[2022-04-18] MEDS: Cholecalciferol (VIT D3) 1,000 unit TAB PO SCH (10:51)
[2022-04-18] MEDS ORDERED: fentaNYL 100 mcg/2 ml 50 MCG/ML VIAL ONE (13:56)
[2022-04-18] MEDS ORDERED: Midazolam 2 mg/2 ml VIAL 1 mg/ml 2 ml VIAL (2 mg) ONE (13:56)
[2022-04-18] MEDS ORDERED: Propofol 10 MG/ML 20 ML BTL ONE (14:01)
[2022-04-18 16:24] LABS: Body Fluid Source Cerebral Spinal
[2022-04-18 16:48] LABS: CSF Glucose 66 mg/dL (40-70)
[2022-04-18 16:54] LABS: Body Fluid Appearance Clear; Body Fluid Color Colorless; CSF Tube # 4
[2022-04-18 16:55] LABS: Body Fluid Total Cells Counted 3; Body Fluid WBC 1 /mcL
[2022-04-18] MEDS: Enoxaparin 40 MG/0.4 ML SYR SUBCUT SCH (18:21)
[2022-04-19] MEDS: D5W NS IVFLUID 1000 ML IV SCH ×2 (04:19→18:16)
[2022-04-19 04:37] LABS: ABS Lymphocytes 0.2 10^3/ul (1.0-4.8); ABS Monocytes 0.2 10^3/ul (0-0.8); ABS Neutrophils 1.4 10^3/ul (1.5-7.7); Eosinophil % 0.4 %; Hematocrit 31 % (35-47); Hemoglobin 10.3 g/dL (12.0-16.0); Lymphocyte % 12.7 %; Mean Corpuscular HGB Conc 34 g/dL (31-36); Mean Corpuscular Hemoglobin 31 pg (27-31); Mean Corpuscular Volume 92 fL (80-97); Mean Platelet Volume 6.7 fL (7.4-10.4); Platelet Count 90 10^3/uL (150-450); Red Blood Count 3.32 10^6 /uL (3.70-4.87); Red Cell Distribution Width 21 % (10-15); White Blood Count 1.8 10^3/uL (3.5-10.8)
[2022-04-19 05:02] LABS: Calcium 6.8 mg/dL (8.6-10.3); Potassium 2.9 mmol/L (3.5-5.0); eGFR CKD-EPI 130.9 (>60)
[2022-04-19] MEDS: Cholecalciferol (VIT D3) 1,000 unit TAB PO SCH (08:58)
[2022-04-19] MEDS: Nystatin SUSPENSION 100,000 UNITS/ML UDC SWISH SPIT SCH ×4 (08:58→21:35)
[2022-04-19] MEDS: KCL 20 MEQ/100 ML IVPREMIX 20 MEQ/100 ML BAG IV SCH ×2 (16:13→18:17)
[2022-04-19] MEDS: Enoxaparin 40 MG/0.4 ML SYR SUBCUT SCH (18:17)
[2022-04-20] MEDS: D5W NS IVFLUID 1000 ML IV SCH (08:00)
[2022-04-20] MEDS: Cholecalciferol (VIT D3) 1,000 unit TAB PO SCH (10:02)
[2022-04-20] MEDS: Nystatin SUSPENSION 100,000 UNITS/ML UDC SWISH SPIT SCH ×4 (10:03→22:18)
[2022-04-20 11:26] LABS: Calcium 7.5 mg/dL (8.6-10.3); Magnesium 1.8 mg/dL (1.9-2.7)
[2022-04-20 11:32] LABS: eGFR CKD-EPI 125.1 (>60)
[2022-04-20] MEDS ORDERED: Magnesium Sulfate IV 1GM/100ML 1 GM/100 ML BAG IV ONE (14:06)
[2022-04-20] MEDS ORDERED: Cholecalciferol (VIT D3) 50,000 UNIT CAP (NF) PO SCH (15:00)
[2022-04-20] MEDS: KCL 20 MEQ/100 ML IVPREMIX 20 MEQ/100 ML BAG IV SCH ×3 (15:51→21:59)
[2022-04-20] MEDS: Enoxaparin 40 MG/0.4 ML SYR SUBCUT SCH (17:36)
[2022-04-20] MEDS: LORazepam 2 mg VIAL 1 ml IV PUSH PRN (18:05)
[2022-04-20] MEDS ORDERED: KCL 20 MEQ/100 ML IVPREMIX 20 MEQ/100 ML BAG IV ONE (23:00)
[2022-04-21] MEDS: D5W NS IVFLUID 1000 ML IV SCH ×2 (00:10→12:58)
[2022-04-21] MEDS: Nystatin SUSPENSION 100,000 UNITS/ML UDC SWISH SPIT SCH ×4 (06:27→23:28)
[2022-04-21 06:37] LABS: Magnesium 1.9 mg/dL (1.9-2.7); eGFR CKD-EPI 125.9 (>60)
[2022-04-21] MEDS: LORazepam 2 mg VIAL 1 ml IV PUSH PRN ×2 (11:47→19:27)
[2022-04-21 15:27] LABS: B. garinii/B. afzellii PCR Negative (Negative); Lyme Disease Source CSF
[2022-04-21] MEDS: Enoxaparin 40 MG/0.4 ML SYR SUBCUT SCH (17:22)
[2022-04-22] MEDS: D5W NS IVFLUID 1000 ML IV SCH ×2 (02:14→16:12)
[2022-04-22 04:33] LABS: Hematocrit 27 % (35-47); Hemoglobin 9.3 g/dL (12.0-16.0); Mean Corpuscular HGB Conc 34 g/dL (31-36); Mean Corpuscular Hemoglobin 31 pg (27-31); Mean Corpuscular Volume 92 fL (80-97); Mean Platelet Volume 6.9 fL (7.4-10.4); Platelet Count 119 10^3/uL (150-450); Red Blood Count 2.95 10^6 /uL (3.70-4.87); Red Cell Distribution Width 20 % (10-15); White Blood Count 1.5 10^3/uL (3.5-10.8)
[2022-04-22 05:03] LABS: ABS Lymphocytes 0.3 10^3/ul (1.0-4.8); ABS Monocytes 0.2 10^3/ul (0-0.8); Eosinophil % 0.3 %; Lymphocyte % 18.7 %; Nucleated Red Blood Cells % 0.2
[2022-04-22 05:06] LABS: Calcium 7.3 mg/dL (8.6-10.3); Magnesium 1.7 mg/dL (1.9-2.7); Potassium 3.8 mmol/L (3.5-5.0); eGFR CKD-EPI 128.2 (>60)
[2022-04-22] MEDS: Nystatin SUSPENSION 100,000 UNITS/ML UDC SWISH SPIT SCH ×4 (08:22→20:42)
[2022-04-22] MEDS: LORazepam 2 mg VIAL 1 ml IV PUSH PRN (18:08)
[2022-04-22] MEDS: Enoxaparin 40 MG/0.4 ML SYR SUBCUT SCH (18:08)
[2022-04-23] MEDS: D5W NS IVFLUID 1000 ML IV SCH ×2 (03:42→19:49)
[2022-04-23] MEDS: Nystatin SUSPENSION 100,000 UNITS/ML UDC SWISH SPIT SCH ×4 (09:13→22:04)
[2022-04-23] MEDS: LORazepam 2 mg VIAL 1 ml IV PUSH PRN (11:03)
[2022-04-23] MEDS: Enoxaparin 40 MG/0.4 ML SYR SUBCUT SCH (18:42)
[2022-04-24] MEDS: Nystatin SUSPENSION 100,000 UNITS/ML UDC SWISH SPIT SCH ×4 (08:59→22:04)
[2022-04-24] MEDS: D5W NS IVFLUID 1000 ML IV SCH ×2 (09:02→22:01)
[2022-04-24 13:50] LABS: Rapid COVID-19 Molecular Undetected (Undetected)
[2022-04-24] MEDS: Enoxaparin 40 MG/0.4 ML SYR SUBCUT SCH (17:32)
[2022-04-25 07:43] VITALS: BP 118/79
[2022-04-25] MEDS: Nystatin SUSPENSION 100,000 UNITS/ML UDC SWISH SPIT SCH (07:55)
[2022-04-25 08:21] LABS: Body Fluid Mono 33 %
[2022-04-26 12:30] LABS: Breast Carcinoma Ag(CA27.29) 20.5 U/mL (<=38.0)
[2022-04-26 18:13] LABS: AGNA-1, CSF Negative titer (<1:2); ANNA-1, CSF Negative titer (<1:2); ANNA-2, CSF Negative titer (<1:2); ANNA-3, CSF Negative titer (<1:2); Amphiphysin Ab, CSF Negative titer (<1:2); CRMP-5-IgG, CSF Negative titer (<1:2); PCA-1, CSF Negative titer (<1:2); PCA-2, CSF Negative titer (<1:2); PCA-Tr, CSF Negative titer (<1:2)
== END 2022-04-25 11:40 | disposition hospice, inpatient (51) | DRG 70 ==
LOC: EDHOLD 12:14 → ED 12:14 → SUATTDRO 04-10 07:15 → EDHOLD 04-10 09:38 → SSU 04-10 10:04
PROVIDERS: ADMIT Student in an Organized Health Care Education/Training Program; ATTEND Internal Medicine Medical Oncology